=== PATIENT | female | born 1990 | race Caucasian/White ===

== ENCOUNTER → 2016-06-26 | Outpatient (CLI) | payer BC ==
[2016-06-26 11:21] LABS: Appearance,Urine Clear (Clear); Bacteria,Urine Few /hpf; Bilirubin,Urine Negative (Negative); Glucose,Urine (UA) Negative (Negative); Ketones,Urine Negative (Negative); Leukocyte Esterase,Urine Moderate (Negative); Mucus,Urine Rare /hpf; Nitrite,Urine Negative (Negative); PH, Urine 6.5 (5.0-8.0); Particle Count 5455; Protein,Urine Negative (Negative); RBC,Urine 1 /hpf (0-5); Specific Gravity,Urine 1.009 (1.001-1.035); Squamous Epithelial Cell,Urine 2 /hpf (0-4); UA Billing (MACRO vs. MICRO) MICRO; Urobilinogen,Urine <2.0 mg/dL (<2.0); WBC,Urine 3 /hpf (0-5)
[2016-06-26 11:23] LABS: CHCM 34.2; HCT 39.3 % (34.0-46.0); HDW 2.91; HGB 13.2 gm/dL (11.4-16.0); MCH 29.7 pg (25.0-35.0); MCHC 33.7 g/dL (31.0-37.0); Mean Platelet Volume 6.9; RBC 4.47 m/uL (3.80-5.40); RDW 13.2 % (11.5-15.5); WBC 8.4 k/uL (3.8-10.6)
[2016-06-26 11:43] LABS: Glucose 98 mg/dL (74-99); Non-African American GFR(MDRD) >60 (>60 ml/min/1.73 sqM)
[2016-06-26 12:12] LABS: Hepatitis B Surface Ag Index 0.09
[2016-06-27 07:54] LABS: HIV-1/HIV-2 Ab Screen NONREAC (NON REAC)
== END ==
LOC: LABWHC1 10:47
PROVIDERS: ATTEND Obstetrics & Gynecology
DX: O26.811 Pregnancy related exhaustion and fatigue, first trimester (principal); Z3A.00 Weeks of gestation of pregnancy not specified
CPT/HCPCS: 36415; 81001; 82565; 82947; 85027; 86762; 86780; 86850; 86900; 86901; 87086; 87340; 87389; 87491; 87591

== ENCOUNTER → 2016-09-27 | Outpatient (CLI) | payer BC ==
[2016-09-27 11:16] LABS: CH 30.5; HCT 32.5 % (34.0-46.0); HDW 3.13; HGB 11.7 gm/dL (11.4-16.0); MCH 31.6 pg (25.0-35.0); MCHC 36.1 g/dL (31.0-37.0); MCV 87.6 fL (80.0-100.0); Mean Platelet Volume 6.5; RBC 3.71 m/uL (3.80-5.40); RDW 14.2 % (11.5-15.5)
== END | disposition home or self-care (01) ==
LOC: LABWHC1 09:21
PROVIDERS: ATTEND Obstetrics & Gynecology
DX: Z34.92 Encounter for supervision of normal pregnancy, unspecified, second trimester (principal)
CPT/HCPCS: 36415; 82950; 85027

== ENCOUNTER 2017-01-02 05:50 | Inpatient (IN) | payer BC ==
[2017-01-02] MEDS ORDERED: ceFAZolin 2 GM in SODIUM CHLORIDE 0.9% 100 ML IVPB ONE (06:05)
[2017-01-02] MEDS ORDERED: LACTATED RINGERS 1,000 ML IV ONE (06:05)
[2017-01-02] MEDS ORDERED: CITRIC ACID-SODIUM CITRATE 15 ML CUP PO ONE (06:05)
[2017-01-02] MEDS ORDERED: LACTATED RINGERS 1,000 ML IV SCH (06:15)
[2017-01-02 06:16] VITALS: BMI 42.0
[2017-01-02 07:07] LABS: Basophils % (A) 0 %; CH 29.9; CHCM 34.5; Eosinophils # (A) 0.2 k/uL (0-0.7); Eosinophils % (A) 2 %; HCT 37.8 % (34.0-46.0); HDW 3.08; Luc # (Auto) 0.25; Luc % (Auto) 2; Lymphocytes # (A) 2.7 k/uL (1.0-4.8); Lymphocytes % (A) 24 %; MCH 29.9 pg (25.0-35.0); MCHC 34.3 g/dL (31.0-37.0); Mean Platelet Volume 6.6; Monocytes # (A) 0.5 k/uL (0-1.0); Monocytes % (A) 4 %; Neutrophils # (A) 7.6 k/uL (1.3-7.7); Neutrophils % (A) 68 %; RBC 4.34 m/uL (3.80-5.40); RDW 13.9 % (11.5-15.5); WBC 11.2 k/uL (3.8-10.6); WBC (Perox) 11.58
[2017-01-02] MEDS ORDERED: ONDANSETRON 4 MG/2 ML VIAL ONE (07:53)
[2017-01-02] MEDS ORDERED: MORPHINE SULFATE (PF) 0.3 MG/0.3 ML SYR ONE (07:53)
[2017-01-02] MEDS ORDERED: NALBUPHINE 10 MG/ML AMPUL ONE (07:53)
[2017-01-02] MEDS ORDERED: PHENYLEPHRINE-0.9% NACL SYG 1 MG/10 ML SYRINGE ONE (07:53)
[2017-01-02] MEDS ORDERED: KETOROLAC 30 MG/ML 1 ML VIAL ONE (07:53)
[2017-01-02] MEDS ORDERED: OXYTOCIN 10 UNIT/ML 1 ML VIAL ONE (07:53)
[2017-01-02] MEDS ORDERED: diphenhydrAMINE 50 MG/ML 1 ML VIAL IVP PRN ×3 (08:32→12:58)
[2017-01-02] MEDS ORDERED: METOCLOPRAMIDE 5 MG/ML 2 ML VIAL IVP PRN (08:32)
[2017-01-02] MEDS ORDERED: NALOXONE 0.4 MG/ML 1 ML VIAL IV PRN ×2 (08:32→12:58)
[2017-01-02] MEDS ORDERED: ACETAMINOPHEN TAB 325 MG TAB PO PRN (08:32)
[2017-01-02] MEDS ORDERED: diphenhydrAMINE 25 MG CAP PO PRN (08:32)
[2017-01-02] MEDS ORDERED: diphenhydrAMINE 50 MG CAP PO PRN (08:32)
[2017-01-02] MEDS ORDERED: Acetaminophen-Codeine 300-30mg TAB PO PRN (08:32)
[2017-01-02] MEDS ORDERED: ZOLPIDEM 5 MG TAB PO PRN (08:32)
[2017-01-02] MEDS ORDERED: SIMETHICONE 80 MG CHEWABLE PO PRN (08:32)
[2017-01-02] MEDS ORDERED: ONDANSETRON 4 MG/2 ML VIAL IVP PRN (08:32)
--- NOTE | 2017-01-02 08:35 | P.HPOB ---
History of Present Illness H&P Date: 01/02/17 Chief Complaint: IUP term: previous c/s Joy is a 26 she'll at 39 weeks gestation who arrives for repeat section. Her course was uncomplicated and she is feeling well at this time. Her pertinent labs O+ blood type Rh antibody was negative, rubella immune, hepatitis B surface antigen/RPR/HIV were all negative. On physical exam vital signs are stable and afebrile. Heart regular, lungs clear, extremities without pain. Osteopathic exam is unremarkable. Abdomen is noted be gravid heart tones are in the 130s to 140s and are reactive prior to proceeding to the section. Assessment intrauterine at term: Previous section. Plan repeat low transverse section Past Medical History Past Medical History: Skin Disorder Additional Past Medical History / Comment(s): hx occ migraines, eczema, History of Any Multi-Drug Resistant Organisms: None Reported Past Surgical History: Section Past Anesthesia/Blood Transfusion Reactions: Postoperative Nausea & Vomiting ( PONV) Past Psychological History: No Psychological Hx Reported Smoking Status: Never smoker Past Alcohol Use History: None Reported Past Drug Use History: None Reported - Past Family History Mother Family Medical History: Cancer Additional Family Medical History / Comment(s): Lung Medications and Allergies Home Medications Medication Instructions Recorded Confirmed Type Pnv No.95/Ferrous Fum/Folic AC 1 each PO DAILY 12/28/16 01/02/17 History [ Multivitamin Tablet] Allergies Allergy/AdvReac Type Severity Reaction Status Date / Time No Known Allergies Allergy Verified 01/02/17 06:03 Exam Osteopathic Statement: *. No significant issues noted on an osteopathic structural exam other than those noted in the History and Physical/Consult. - Vital Signs Vital signs: Vital Signs Temp Pulse Resp BP 01/02/17 06:05 97.2 F L 60 16 115/65 Intake and Output 01/01/17 01/02/17 01/02/17 22:59 06:59 14:59 Other: Weight 114.759 kg Results Result Diagrams: 01/02/17 06:45 Abnormal Lab Results - Last 24 Hours (Table) 01/02/17 Range/Units 06:45 WBC 11.2 H (3.8-10.6) k/uL
--- NOTE | 2017-01-02 08:38 | P.OP ---
Date of Procedure: 01/02/17 Preoperative Diagnosis: Intrauterine at term: Previous section Postoperative Diagnosis: Same Procedure(s) Performed: Repeat low transverse section Implants: Anesthesia: spinal Surgeon: Jd Huff Director [employer] #1: Tasneem Salinas Estimated Blood Loss (ml): 400 IV fluids (ml): 1,400 Urine output (ml): 100 Pathology: other (Placenta) Condition: stable Disposition: floor Indications for Procedure: Operative Findings: Female scores of 9 and 9 at one and 5 minutes and a weight of 8 lbs. 5 oz. Description of Procedure: Patient states the operating suite where a spinal anesthetic was found be adequate. She was prepped and draped in the normal sterile fashion and placed in the dorsal supine position with leftward tilt. Initially a Pfannenstiel skin incision was made and this incision was carried through to underlying layer of the fascia with the second knife. Fascia was then nicked in the midline and this opening was extended laterally with Aguilar scissors. Superior and inferior aspect of this incision were then grasped tented up and bluntly and sharply dissected off the rectus muscles. Rectus muscles were then divided the midline and sharp dissection through the peritoneum was made. This opening was then extended superiorly and inferiorly with good visualization of both bowel bladder. Bladder blade was then placed and the bladder flap was identified and entered with the Metzenbaum scissors. This opening was then extended across the face of the uterus with Metzenbaum scissors and bladder flap was digitally created. Knife was then used to incise uterus this opening was then extended bluntly and head was atraumatically delivered. Clear fluid is noted. Mouth nares were bulb suctioned and a nuchal cord 1 was easily reduced. Anterior and posterior shoulders were then delivered gentle downward upper traction followed by the remainder the baby. Umbilical cord was then clamped cut usual fashion an nursery personnel was present to assume care. Placenta was then delivered intact and Pitocin was added to the IV. Uterus was then exteriorized cleared of clots and debris and closed in 2 layers with 0 Vicryl suture. Bladder flap was then reapproximated with 3-0 Vicryl. Blood and debris was then suctioned from the posterior cul-de-sac and the uterus was reinserted into the abdomen. Peritoneal layer was then reapproximated with 0 Vicryl suture fascial layer was closed with 0 Vicryl suture one layer of 3-0 Vicryl was placed in deep subcuticular tissues and the skin was closed with 3-0 Vicryl on a Con needle. Sponge, lap, needle counts were all correct 2. Patient was then taken to the recovery room in stable and satisfactory condition.
[2017-01-02] MEDS: LACTATED RINGERS 1,000 ML IV SCH ×2 (12:52→17:17)
[2017-01-02] MEDS ORDERED: MORPHINE SULFATE 4 MG/ML SYRINGE IVP PRN (12:58)
[2017-01-02] MEDS: KETOROLAC 30 MG/ML 1 ML VIAL IVP PRN ×2 (14:20→20:35)
[2017-01-02] MEDS: SENNOSIDES-DOCUSATE SODIUM 1 EACH TAB PO SCH (20:35)
[2017-01-03] MEDS: KETOROLAC 30 MG/ML 1 ML VIAL IVP PRN (03:33)
[2017-01-03 07:41] LABS: Basophils % (A) 0 %; CHCM 34.8; Eosinophils # (A) 0.2 k/uL (0-0.7); Eosinophils % (A) 2 %; HCT 33.1 % (34.0-46.0); HGB 11.1 gm/dL (11.4-16.0); Luc # (Auto) 0.16; Luc % (Auto) 2; Lymphocytes # (A) 2.5 k/uL (1.0-4.8); Lymphocytes % (A) 25 %; MCH 29.9 pg (25.0-35.0); MCHC 33.4 g/dL (31.0-37.0); MCV 89.6 fL (80.0-100.0); Monocytes # (A) 0.5 k/uL (0-1.0); Monocytes % (A) 5 %; Neutrophils # (A) 6.6 k/uL (1.3-7.7); Neutrophils % (A) 66 %; RDW 14.3 % (11.5-15.5); WBC 9.9 k/uL (3.8-10.6); WBC (Perox) 10.52
[2017-01-03] MEDS: SENNOSIDES-DOCUSATE SODIUM 1 EACH TAB PO SCH ×2 (08:05→23:50)
[2017-01-03] MEDS: IBUPROFEN 600 MG TAB PO PRN ×2 (12:00→23:50)
--- NOTE | 2017-01-03 13:17 | P.PN ---
Progress Note - Text 0702 Anesthesia POD 1. Patient is status post section under anesthesia with intra-thecal preservative free morphine 300 g. Mild pruritus, good post-op analgesia, and no headache or other complications.
[2017-01-03] MEDS: Acetaminophen-Codeine 300-30mg TAB PO PRN (18:10)
[2017-01-04] MEDS: Acetaminophen-Codeine 300-30mg TAB PO PRN (05:48)
[2017-01-04 08:21] VITALS: BP 91/48; PULSE 57; RESP 16; TEMP 97.8
[2017-01-04] MEDS: SENNOSIDES-DOCUSATE SODIUM 1 EACH TAB PO SCH (08:23)
[2017-01-04] MEDS: IBUPROFEN 600 MG TAB PO PRN (10:47)
--- NOTE | 2017-01-04 11:08 | P.DS ---
Providers Date of admission: 01/02/17 05:50 Expected date of discharge: 01/04/17 Attending physician: Jd Huff Primary care physician: Stated None Hospital Course: Negative doing very well post op day 2. She is involuting, voiding, and she is tolerating her diet. She has had a bowel movement. Vital signs are stable and afebrile. Heart is regular, lungs are clear, abdomen soft uterus is firm and below the umbilicus. Incision is clean dry and intact. Extremities are without pain. Assessment postop day 2. Plan discharged home follow up with me in 1 week. Prescription for towel 3 and Motrin have been provided. Prescription for breast pump cells been provided. We did review risks of narcotic use and breast-feeding she is aware of those risks. All other questions are answered for her prior to discharge and she is stable for discharge at this time. Patient Condition at Discharge: Good Plan - Discharge Summary New Discharge Prescriptions: New Acetaminophen-Codeine 300-30mg [Tylenol #3] 1 tab PO Q4H PRN #30 tablet PRN Reason: Pain Ibuprofen [Motrin] 600 mg PO Q6HR PRN #30 tab PRN Reason: Pain No Action Pnv No.95/Ferrous Fum/Folic AC [ Multivitamin Tablet] 1 tab PO DAILY Discharge Medication List Pnv No.95/Ferrous Fum/Folic AC [ Multivitamin Tablet] 1 tab PO DAILY 05/15 [History] Acetaminophen-Codeine 300-30mg [Tylenol #3] 1 tab PO Q4H PRN #30 tablet [Rx] Ibuprofen [Motrin] 600 mg PO Q6HR PRN #30 tab 01/04/17 [Rx] Follow up Appointment(s)/Referral(s): Jd Huff DO [Doctor of Osteopathic Medicine] - 1 Week Activity/Diet/Wound Care/Special Instructions: No heavy lifting, limit stairs and driving, and pelvic rest. If any high temperatures, heavy bleeding, or severe pain call my office
== END 2017-01-04 11:55 | disposition home or self-care (01) | DRG 766 ==
LOC: 4FBP 05:50
PROVIDERS: ADMIT Obstetrics & Gynecology; ATTEND Obstetrics & Gynecology
PROC: 10D00Z1 Extraction of Products of Conception, Low, Open Approach (ICD-10-PCS; principal; 2017-01-02 08:06)
DX: O34.211 Maternal care for low transverse scar from previous cesarean delivery (principal); O69.81X0 Labor and delivery complicated by cord around neck, without compression, not applicable or unspecified; Z37.0 Single live birth; Z3A.39 39 weeks gestation of pregnancy
CPT/HCPCS: 85025; 86850; 86900; 86901; 88307

== ENCOUNTER → 2019-10-28 | Outpatient (CLI) | payer BC ==
--- NOTE | 2019-10-28 14:43 | US ---
EXAMINATION TYPE: Transabdominal DATE OF EXAM: 10/28/2019 2:18 PM COMPARISON: NONE CLINICAL HISTORY: Z36 Confirm dates. unknown LMP, dates EXAM PERFORMED: OBTA EXAM MEASUREMENTS: GESTATIONAL AGE / DATING Physician Established: Not yet established Dates by LMP: LMP unknown Dates by First Scan: No previous this is first scan Dates by Current Scan for: (11 weeks/5 days) EDC: 05/13/2020 MATERNAL ANATOMY Uterus: 11.5 x 8.2 x 6.8cm, probable anterior fibroid 1.4 x 1.6 x 1.5cm Right Ovary: 3.0 x 2.8 x 2.7cm Left Ovary: 2.2 x 2.3 x 2.3cm, appearance of involuting cyst = 1.3cm Post CDS / Adnexa: wnl Presence of free fluid: no Presence of corpus luteal cyst: 2.4cm seen on the right Presence of subchorionic bleed: no GESTATION / SURVEY CRL: 4.8cm (11 weeks/5 days) MSD: wnl Yolk Sac (normal less than 6mm): not seen Heart Rate: 102 bpm, lower end of normal Rhythm: Normal IUP: Viable IUP Date of LMP: unknown Beta HcG (if available): not available IMPRESSION: Single viable . Leiomyomatous change.
== END | disposition home or self-care (01) ==
LOC: RADUSWWP 13:58
PROVIDERS: ATTEND Obstetrics & Gynecology
DX: Z3A.11 11 weeks gestation of pregnancy (principal); D25.9 Leiomyoma of uterus, unspecified
CPT/HCPCS: 76801

== ENCOUNTER 2020-05-06 05:51 | Inpatient (IN) | payer BC ==
[2020-05-05 08:18] VITALS: BMI 43.2
[2020-05-06] MEDS ORDERED: CITRIC ACID-SODIUM CITRATE 15 ML CUP PO ONE (06:25)
[2020-05-06 06:33] LABS: Basophils % (A) 0 %; Eosinophils # (A) 0.1 k/uL (0-0.7); Eosinophils % (A) 1 %; HCT 34.4 % (34.0-46.0); HGB 11.9 gm/dL (11.4-16.0); Lymphocytes # (A) 2.7 k/uL (1.0-4.8); Lymphocytes % (A) 30 %; MCH 29.6 pg (25.0-35.0); MCHC 34.6 g/dL (31.0-37.0); MCV 85.6 fL (80.0-100.0); Mean Platelet Volume 6.7; Monocytes # (A) 0.5 k/uL (0-1.0); Monocytes % (A) 5 %; Neutrophils # (A) 5.6 k/uL (1.3-7.7); Neutrophils % (A) 63 %; Platelet Count 297 k/uL (150-450); RBC 4.02 m/uL (3.80-5.40); RDW 14.5 % (11.5-15.5); WBC 8.9 k/uL (3.8-10.6)
[2020-05-06] MEDS ORDERED: LACTATED RINGERS 1,000 ML IV SCH (07:30)
[2020-05-06] MEDS ORDERED: KETOROLAC 15 MG/ML 1 ML VIAL ONE (08:06)
[2020-05-06] MEDS ORDERED: MORPHINE SULFATE (PF) 0.3 MG/0.3 ML SYR ONE (08:06)
[2020-05-06] MEDS ORDERED: ONDANSETRON 4 MG/2 ML VIAL ONE (08:06)
[2020-05-06] MEDS ORDERED: OXYTOCIN 10 UNIT/ML 1 ML VIAL ONE (08:06)
[2020-05-06] MEDS ORDERED: NALBUPHINE 10 MG/ML (1 ML AMP) ONE (08:06)
[2020-05-06] MEDS ORDERED: ACETAMINOPHEN TAB 325 MG TAB PO PRN (08:46)
[2020-05-06] MEDS ORDERED: HYDROcodone/APAP 7.5-325MG 1 EACH TAB PO PRN (08:46)
[2020-05-06] MEDS ORDERED: diphenhydrAMINE 50 MG/ML 1 ML VIAL IVP PRN ×2 (08:46)
[2020-05-06] MEDS ORDERED: diphenhydrAMINE 50 MG CAP PO PRN (08:46)
[2020-05-06] MEDS ORDERED: NALOXONE 0.4 MG/ML 1 ML VIAL IV PRN (08:46)
[2020-05-06] MEDS ORDERED: ONDANSETRON 4 MG/2 ML VIAL IVP PRN (08:46)
[2020-05-06] MEDS ORDERED: ZOLPIDEM 5 MG TAB PO PRN (08:46)
[2020-05-06] MEDS ORDERED: diphenhydrAMINE 25 MG CAP PO PRN (08:46)
[2020-05-06] MEDS ORDERED: METOCLOPRAMIDE 5 MG/ML 2 ML VIAL IVP PRN (08:46)
[2020-05-06] MEDS ORDERED: SIMETHICONE 80 MG CHEWABLE PO PRN (08:46)
--- NOTE | 2020-05-06 08:48 | P.HPOB ---
History of Present Illness H&P Date: 05/06/20 Chief Complaint: Regnancy at term: Prior section: Family planning Joy is a 29-year-old G3 3 P2 with prior section is scheduled for repeat and tubal. Risks/benefits/alternatives were reviewed with patient in detail and all questions were answered for her prior to proceeding to the operating room. Her course was generally unremarkable. And she is feeling well at this time. All questions are answered and we'll plan to proceed with section. Category 1 tracing is noted prior to proceeding to the section Past Medical History Past Medical History: Skin Disorder Additional Past Medical History / Comment(s): hx occ migraines, eczema, History of Any Multi-Drug Resistant Organisms: None Reported Past Surgical History: Section Past Anesthesia/Blood Transfusion Reactions: Postoperative Nausea & Vomiting (PONV) Past Psychological History: No Psychological Hx Reported Smoking Status: Never smoker Past Alcohol Use History: None Reported Past Drug Use History: None Reported - Past Family History Mother Family Medical History: Cancer Additional Family Medical History / Comment(s): Lung Medications and Allergies Home Medications Medication Instructions Recorded Confirmed Type Pnv No.95/Ferrous Fum/Folic AC 1 tab PO DAILY 12/28/16 05/06/20 History [ Multivitamin Tablet] Cetirizine HCl [Zyrtec] 10 mg PO DAILY 05/05/20 05/06/20 History Allergies Allergy/AdvReac Type Severity Reaction Status Date / Time No Known Allergies Allergy Verified 05/05/20 08:12 Exam Osteopathic Statement: *. No significant issues noted on an osteopathic struc tural exam other than those noted in the History and Physical/Consult. Vital Signs Temp Pulse Resp BP Pulse Ox 05/06/20 05:52 96.2 F L 76 17 124/69 98 Intake and Output 05/05/20 05/06/20 05/06/20 22:59 06:59 14:59 Other: # Voids 2 Weight 117.934 kg - OBG Physical Exam Breast: both: normal (no masses) Abdomen: bowel sounds normal, no diffuse tenderness, no bruit present, no guarding noted, no hepatomegaly, no splenomegaly, no mass Vulva: both: normal Vagina: normal moisture, no discharge Cervix: no lesion, no discharge Uterus: normal size, normal contour Adnexa: both: normal Anus/Rectum: normal perianal skin, no rectal mass, no hemorrhoids, heme negative Results Result Diagrams: 05/06/20 06:16
--- NOTE | 2020-05-06 08:52 | P.OP ---
Date of Procedure: 05/06/20 Preoperative Diagnosis: Intrauterine term: Prior section: Family planning Postoperative Diagnosis: Same Procedure(s) Performed: Repeat low transverse section with bilateral tubal occlusion Filshie clips Anesthesia: spinal Surgeon: dJ Huff Resource Management Specialist #1: Tasneem Salinas Estimated Blood Loss (ml): 300 IV fluids (ml): 700 Urine output (ml): 400 Pathology: none sent Condition: stable Disposition: floor Operative Findings: Male scores of 9 and 10 at one and 5 minutes Berger and weight was 8 lbs. 3 oz. Description of Procedure: Patient was taken to the operating suite where a final anesthetic was found be adequate. She was prepped and draped in the normal sterile fashion and placed in dorsal supine position with leftward tilt. Initially a Pfannenstiel skin incision was made and this incision was then carried through to underlying layer of the fashion with second knife. Fascia was then nicked in midline and this opening was extended laterally with Aguilar scissors. Superior and inferior aspect of this incision were then grasped tented up and bluntly and sharply dissected off the rectus muscles. Rectus muscles were then divided the midline and sharp dissection the peritoneum was made. This opening was then extended superiorly and inferiorly with good visualization of both bowel bladder. Bladder blade was then placed bladder flap identified and entered with Metzenbaum scissors. This opening was then extended across the face the uterus with Metzenbaum scissors and bluntly dissected out of the operative field. Very thin uterine lower segment was noted. Knife was used to incise this tissue and fully developed with hemostat. It was then extended bluntly and head was then atraumatically delivered. Baby was delivered from right occiput anterior position mouth nares were then done bulb suction mouth nares and following fully delivered of the baby nursery personnel was present and assumed care. Placenta was then delivered intact Pitocin was added to the IV. Uterus was then exteriorized cleared of clots and debris and closed in 2 layers with 0 Vicryl suture. Once excellent hemostasis was obtained and it should be noted there was some reinforcement sutures on the lower uterine segment as it was thin but once hemostasis was obtained blood and debris was suctioned the posterior cul-de-sac and verification of tube ligation was made. First the right fallopian tube than the left fallopian tube had a Filshie clip applied 3 cm from uterine cornu. No bleeding is noted in the mesosalpinx therefore uterus was reinserted into the abdomen and peritoneal layer was delayed with hemostats and closed with 0 Vicryl suture. Fascial layer was then closed with 0 Vicryl suture. One layer of 3-0 Vicryl was placed in deep subcuticular tissues to reapproximate skin and close space. Skin was then closed with 3-0 Vicryl subcuticularly. Sponge, lap, needle counts were all correct 2. Patient was then taken to the recovery room in stable and satisfactory condition.
[2020-05-06] MEDS: SENNOSIDES-DOCUSATE SODIUM 1 EACH TAB PO SCH ×2 (11:04→21:03)
[2020-05-06] MEDS: LACTATED RINGERS 1,000 ML IV SCH ×2 (13:59→21:05)
[2020-05-06] MEDS: KETOROLAC 15 MG/ML 1 ML VIAL IVP PRN ×2 (16:40→23:54)
[2020-05-07] MEDS: IBUPROFEN 600 MG TAB PO PRN ×4 (00:06→22:06)
[2020-05-07] MEDS: LACTATED RINGERS 1,000 ML IV SCH (02:24)
[2020-05-07 06:49] LABS: Basophils % (A) 0 %; Eosinophils # (A) 0.1 k/uL (0-0.7); Eosinophils % (A) 1 %; HCT 32.7 % (34.0-46.0); HGB 10.7 gm/dL (11.4-16.0); Lymphocytes # (A) 1.8 k/uL (1.0-4.8); Lymphocytes % (A) 22 %; MCH 28.8 pg (25.0-35.0); MCHC 32.6 g/dL (31.0-37.0); MCV 88.3 fL (80.0-100.0); Mean Platelet Volume 6.8; Monocytes # (A) 0.5 k/uL (0-1.0); Monocytes % (A) 6 %; Neutrophils # (A) 5.4 k/uL (1.3-7.7); Neutrophils % (A) 68 %; Platelet Count 245 k/uL (150-450); RBC 3.71 m/uL (3.80-5.40); RDW 14.9 % (11.5-15.5); WBC 7.9 k/uL (3.8-10.6)
--- NOTE | 2020-05-07 08:21 | P.PN ---
Progress Note - Text Date: 05/07/2020 Time: 07:53 The patient is status post section Vital signs stable VAS: 0-10 Patient has no complaints of pain. The patient incurred some minimal itching yesterday, this itching is now subsiding. Pain meds to be managed by service.
[2020-05-07 08:38] VITALS: RESP 16
[2020-05-07] MEDS: SENNOSIDES-DOCUSATE SODIUM 1 EACH TAB PO SCH ×2 (09:02→19:55)
--- NOTE | 2020-05-07 11:04 | P.PNOBGPC ---
Subjective - Subjective Principal diagnosis: Postop day 1 Interval history: Negative as doing very well postop day 1. She is ambulating, voiding and tolerating her diet. She voices no complaints. Vital signs are stable and afebrile. Heart regular, lungs clear, extremities without pain. Abdomen soft and her incision is clean dry and intact. Patient reports: Reports appetite normal, Reports voiding normally, Reports pain well controlled, Reports ambulating normally : doing well Objective - Vital Signs Latest vital signs: Vital Signs Temp Pulse Resp BP Pulse Ox 05/07/20 08:00 98.1 F 77 16 94/61 100 05/07/20 04:00 98.1 F 59 L 18 85/57 98 05/07/20 00:00 98.2 F 65 18 92/60 99 05/06/20 20:00 98.0 F 66 18 96/65 98 05/06/20 16:00 99.0 F 69 16 106/62 99 05/06/20 12:00 96.7 F L 58 L 18 110/65 96 Intake and Output 05/06/20 05/07/20 05/07/20 22:59 06:59 14:59 Intake Total 600 Output Total 1450 300 Balance -850 -300 Intake: Oral 600 Output: Urine 1450 300 Uretheral (Richard) 900 Other: # Voids 2 - Exam Lungs: bilateral: normal Chest: Normal S1, Normal S2 Extremities: Present: normal Abdomen: Present: normal appearance, soft. Absent: distention, tenderness Incision: Present: normal, dry, intact Uterus: Present: normal, firm - Labs Labs: Abnormal Lab Results - Last 24 Hours (Table) 05/07/20 Range/Units 06:21 RBC 3.71 L (3.80-5.40) m/uL Hgb 10.7 L (11.4-16.0) gm/dL Hct 32.7 L (34.0-46.0) %
[2020-05-08] MEDS: IBUPROFEN 600 MG TAB PO PRN ×2 (04:33→09:52)
[2020-05-08] MEDS: SENNOSIDES-DOCUSATE SODIUM 1 EACH TAB PO SCH (07:50)
[2020-05-08 07:59] VITALS: BP 110/68; PULSE 56; TEMP 97.9
--- NOTE | 2020-05-14 12:08 | P.DS ---
Providers Date of admission: 05/06/20 05:51 Expected date of discharge: 05/14/20 Attending physician: Jd Huff Primary care physician: Stated None Hospital Course: Negative was discharged home post op day 2. She was doing very well. She voices no complaints vital signs are stable and afebrile discharge instructions thoroughly reviewed and all questions were answered for her. Prescription for pain medication were 40 to her pharmacy and she was stable at time of discharge. She was to follow-up with me in 1 week. All the questions were answered for her prior to discharge. On physical exam heart was regular, lungs were clear abdomen was soft nontender positive bowel sounds are noted in her incision is otherwise clean dry and intact. Assessment postop day 2. Plan discharged home follow up with me in 1 week. Patient Condition at Discharge: Good Plan - Discharge Summary Discharge Rx Participant: Yes New Discharge Prescriptions: New Ibuprofen [Motrin] 600 mg PO Q6HR PRN #30 tab PRN Reason: Pain HYDROcodone/APAP 5-325MG [[place] 5-325] 1 tab PO Q4HR PRN #30 tab PRN Reason: Pain No Action Pnv No.95/Ferrous Fum/Folic AC [ Multivitamin Tablet] 1 tab PO DAILY Cetirizine HCl [Zyrtec] 10 mg PO DAILY Discharge Medication List Pnv No.95/Ferrous Fum/Folic AC [ Multivitamin Tablet] 1 tab PO DAILY 12/28/16 [History] Cetirizine HCl [Zyrtec] 10 mg PO DAILY 05/05/20 [History] HYDROcodone/APAP 5-325MG [[place] 5-325] 1 tab PO Q4HR PRN #30 tab 05/07/20 [Rx] Ibuprofen [Motrin] 600 mg PO Q6HR PRN #30 tab 05/07/20 [Rx] Follow up Appointment(s)/Referral(s): Jd Huff DO [Doctor of Osteopathic Medicine] - 1 Week Activity/Diet/Wound Care/Special Instructions: Limit stairs and driving, and pelvic rest. If any high temperatures, heavy bleeding, or severe pain call my office no tub baths for 2 weeks showering is finding Discharge Disposition: HOME SELF-CARE
== END 2020-05-08 10:07 | disposition home or self-care (01) | DRG 785 ==
LOC: 4FBP 05:51
PROVIDERS: ADMIT Obstetrics & Gynecology; ATTEND Obstetrics & Gynecology
PROC: 10D00Z1 Extraction of Products of Conception, Low, Open Approach (ICD-10-PCS; principal; 2020-05-06 08:00)
PROC: 0UL70CZ Occlusion of Bilateral Fallopian Tubes with Extraluminal Device, Open Approach (ICD-10-PCS; principal; 2020-05-06 08:00)
DX: O34.211 Maternal care for low transverse scar from previous cesarean delivery (principal); Z37.0 Single live birth; Z30.2 Encounter for sterilization; Z3A.39 39 weeks gestation of pregnancy
CPT/HCPCS: 85025; 86850; 86900; 86901